=== PATIENT | female | born 1970 | race Two or more races ===

== ENCOUNTER 2022-02-11 22:43 | Emergency (ER) | payer OTHER ==
[2022-02-11 22:55] VITALS: PULSE 59; RESP 18; TEMP 98.6; BMI 28.3
[2022-02-11 23:05] VITALS: BP 127/80
== END 2022-02-11 23:41 | disposition left against medical advice (07) ==
LOC: JER 22:43
DX: R42 Dizziness and giddiness (principal)
CPT/HCPCS: 93005; 93010; 99283-25